=== PATIENT | male | born 1940 | race Caucasian/White ===

== ENCOUNTER 2021-05-07 18:38 | Inpatient (IN) ==
[2021-05-07] MEDS ORDERED: Ondansetron 4 MG/2 ML VIAL IVP PRN (23:23)
[2021-05-07] MEDS ORDERED: Naloxone 0.4 MG/ML INJ IVP PRN (23:23)
[2021-05-07] MEDS ORDERED: Acetaminophen 325 MG TABLET PO PRN (23:23)
[2021-05-07] MEDS ORDERED: D5% in Water 1,000 ML IVC PRN (23:49)
[2021-05-07] MEDS ORDERED: Dextrose Gel 15 GM/37.5 ML TUBE PO PRN ×2 (23:49)
[2021-05-07] MEDS ORDERED: *HR* Dextrose 50 % in Water (Syg) 50 ML SYRINGE IVP PRN (23:49)
[2021-05-08 01:21] LABS: Alanine Aminotransferase 54 Units/L (7-52); Albumin 3.4 g/dL (3.5-5.7); Alkaline Phosphatase 52 Units/L (34-104); Aspartate Amino Transferase 76 Units/L (13-39); BUN/Creatinine Ratio 27 (6-26); Bilirubin,Direct 0.2 mg/dL (0.0-0.2); Bilirubin,Indirect 0.3 mg/dL (0.0-1.0); Bilirubin,Total 0.5 mg/dL (0.3-1.0); Blood Urea Nitrogen 37 mg/dL (8-23); C-Reactive Protein 152 mg/L (Less than 10); Calcium 9.3 mg/dL (8.6-10.3); Carbon Dioxide 26 mEq/L (23-29); Chloride 101 mEq/L (98-107); Chol/HDL Ratio 3.2 (0-4.9); Cholesterol 86 mg/dL (< 200); Globulin 3.5 g/dL (2.4-3.5); Glucose 98 mg/dL (70-105); HDL Cholesterol 27 mg/dL (40-59); LDL Cholesterol,Calculated 45 mg/dL (< 100); Lactate Dehydrogenase 322 Units/L (140-271); Magnesium 1.8 mg/dL (1.6-2.6); Osmolality,Calculated 289 (280-300); Phosphorous 2.6 mg/dL (2.7-4.5); Potassium 3.7 mEq/L (3.5-5.1); Sodium 135 mEq/L (136-145); Total Protein 6.9 g/dL (6.4-8.9); Triglycerides 72 mg/dL (< 150); eGFR For African Americans > 60 (> 60); eGFR For Non-African Americans 50 (> 60)
[2021-05-08 01:30] LABS: Basophils % 0.3 %; Eosinophils % 0.3 %; Hematocrit 36.1 % (37.5-50.1); Hemoglobin 12.1 g/dL (12.9-16.9); Immature Granulocytes % 0.7 % (0-4); Lymphocytes # 0.5 K/mcL (0.6-4.6); Lymphocytes % 4.1 %; Mean Corpuscular HGB Conc 33.5 g/dL (31.6-35.5); Mean Corpuscular Hemoglobin 30.4 pg (28.0-33.3); Mean Corpuscular Volume 90.7 fL (83.0-100.0); Mean Platelet Volume 11.8 fL (9.4-12.4); Monocytes % 8.6 %; Neutrophils # 9.8 K/mcL (1.6-8.9); Platelet Count 326 K/mcL (140-400); Red Blood Count 3.98 M/mcL (4.19-5.50); White Blood Count 11.3 K/mcL (4.3-11.1)
[2021-05-08 01:38] LABS: Ferritin 1229 ng/mL (20-250)
[2021-05-08 01:39] LABS: Estimated Average Glucose 169 mg/dl; Hemoglobin A1C 7.5 %
[2021-05-08 02:02] LABS: INR 1.6; Prothrombin Time 18.2 Seconds (9.4-12.1)
[2021-05-08] MEDS ORDERED: *HR* Heparin 5,000 UNIT/ML VIAL IVP PRN ×2 (02:02)
[2021-05-08] MEDS: Heparin 25,000UNIT/250ML 1/2NS 25,000 UNIT/250 ML IV.SOLN IVC SCH (02:23)
[2021-05-08 02:55] LABS: Bilirubin,Urine Negative (Negative); Blood,Urine Trace (Negative); Clarity,Urine Clear (Clear); Color,Urine Yellow (Yellow); Glucose,Urine (UA) Normal (Normal); Ketones,Urine Negative (Negative); Leukocyte Esterase,Urine Negative (Negative); Mucus,Urine Few per lpf (None-Few); Nitrite,Urine Negative (Negative); PH,Urine 5.5 pH Units (5.0-8.0); Protein,Urine 50 mg/dL (Neg-Trace); RBC,Urine 0-3 per hpf (0-3); Specific Gravity,Urine 1.026 (1.010-1.025); Squamous Epithelial Cell,Urine Few per hpf (None-Few); WBC,Urine 0-3 per hpf (0-3)
[2021-05-08] MEDS: Insulin LISPRO 300 UNITS/3 ML VIAL SUBQ SCH ×4 (08:13→20:10)
[2021-05-08] MEDS: cefTRIAXone 1,000 MG in 0.9 % Sodium Chloride Mini Bag 100 ML IVPB SCH (08:35)
[2021-05-08] MEDS: Azithromycin 500 MG in 0.9 % Sodium Chloride 250 ML IVPB SCH (08:35)
[2021-05-08] MEDS: Ipratropium 1 PUFF INHALER IH SCH ×3 (16:11→23:48)
[2021-05-08] MEDS: Metoprolol XL (24 HR) Succ 25 MG TAB.ER.24H PO SCH (17:47)
[2021-05-09] MEDS: Heparin 25,000UNIT/250ML 1/2NS 25,000 UNIT/250 ML IV.SOLN IVC SCH ×2 (01:05→19:18)
[2021-05-09] MEDS: Ipratropium 1 PUFF INHALER IH SCH ×6 (04:09→23:52)
[2021-05-09 04:16] LABS: Basophils % 0.4 %; Eosinophils # 0.2 K/mcL (0.0-0.6); Eosinophils % 2.1 %; Hematocrit 35.5 % (37.5-50.1); Hemoglobin 11.8 g/dL (12.9-16.9); Immature Granulocytes % 0.9 % (0-4); Lymphocytes # 0.8 K/mcL (0.6-4.6); Lymphocytes % 11.1 %; Mean Corpuscular HGB Conc 33.2 g/dL (31.6-35.5); Mean Corpuscular Hemoglobin 30.3 pg (28.0-33.3); Mean Platelet Volume 11.5 fL (9.4-12.4); Monocytes # 0.7 K/mcL (0.0-1.3); Monocytes % 9.4 %; Neutrophils # 5.7 K/mcL (1.6-8.9); Platelet Count 296 K/mcL (140-400); Segmented Neutrophils % 76.1 %; White Blood Count 7.5 K/mcL (4.3-11.1)
[2021-05-09 04:36] LABS: BUN/Creatinine Ratio 29 (6-26); Blood Urea Nitrogen 31 mg/dL (8-23); Calcium 9.4 mg/dL (8.6-10.3); Carbon Dioxide 25 mEq/L (23-29); Chloride 105 mEq/L (98-107); Glucose 120 mg/dL (70-105); Osmolality,Calculated 298 (280-300); Sodium 140 mEq/L (136-145); eGFR For African Americans > 60 (> 60); eGFR For Non-African Americans > 60 (> 60)
[2021-05-09] MEDS: Insulin LISPRO 300 UNITS/3 ML VIAL SUBQ SCH ×4 (08:30→20:05)
[2021-05-09] MEDS: Aspirin Enteric Coated 81 MG Tablet PO SCH (08:46)
[2021-05-09] MEDS: Loratadine 10 MG TABLET PO SCH (08:46)
[2021-05-09] MEDS: Metoprolol XL (24 HR) Succ 25 MG TAB.ER.24H PO SCH (08:46)
[2021-05-09] MEDS: cefTRIAXone 1,000 MG in 0.9 % Sodium Chloride Mini Bag 100 ML IVPB SCH (09:14)
[2021-05-09] MEDS: Fluticasone Propionate Nasal 50 MCG/SPRAY BOTTLE NS SCH (09:21)
[2021-05-09] MEDS: Azithromycin 500 MG in 0.9 % Sodium Chloride 250 ML IVPB SCH (10:14)
[2021-05-10] MEDS: Heparin 25,000UNIT/250ML 1/2NS 25,000 UNIT/250 ML IV.SOLN IVC SCH (00:20)
[2021-05-10 03:43] LABS: Basophils % 0.3 %; Eosinophils # 0.2 K/mcL (0.0-0.6); Eosinophils % 2.5 %; Hematocrit 34.1 % (37.5-50.1); Hemoglobin 11.1 g/dL (12.9-16.9); Immature Granulocytes % 1.2 % (0-4); Lymphocytes # 0.8 K/mcL (0.6-4.6); Lymphocytes % 8.2 %; Mean Corpuscular HGB Conc 32.6 g/dL (31.6-35.5); Mean Corpuscular Volume 92.2 fL (83.0-100.0); Mean Platelet Volume 10.4 fL (9.4-12.4); Monocytes # 0.7 K/mcL (0.0-1.3); Monocytes % 6.8 %; Neutrophils # 7.9 K/mcL (1.6-8.9); Platelet Count 346 K/mcL (140-400); Red Cell Distribution Width 13.1 % (11.5-14.5); White Blood Count 9.8 K/mcL (4.3-11.1)
[2021-05-10 04:02] LABS: Alanine Aminotransferase 34 Units/L (7-52); Albumin 3.1 g/dL (3.5-5.7); Albumin/Globulin Ratio 0.9 (1.1-2.2); Alkaline Phosphatase 51 Units/L (34-104); Aspartate Amino Transferase 37 Units/L (13-39); BUN/Creatinine Ratio 24 (6-26); Bilirubin,Total 0.5 mg/dL (0.3-1.0); Blood Urea Nitrogen 26 mg/dL (8-23); C-Reactive Protein 110 mg/L (Less than 10); Calcium 9.2 mg/dL (8.6-10.3); Carbon Dioxide 25 mEq/L (23-29); Chloride 103 mEq/L (98-107); Globulin 3.4 g/dL (2.4-3.5); Glucose 142 mg/dL (70-105); Lactate Dehydrogenase 276 Units/L (140-271); Magnesium 1.8 mg/dL (1.6-2.6); Osmolality,Calculated 295 (280-300); Potassium 3.9 mEq/L (3.5-5.1); Sodium 139 mEq/L (136-145); Total Protein 6.5 g/dL (6.4-8.9); eGFR For African Americans > 60 (> 60); eGFR For Non-African Americans > 60 (> 60)
[2021-05-10 04:19] LABS: Ferritin 1143 ng/mL (20-250)
[2021-05-10] MEDS: Ipratropium 1 PUFF INHALER IH SCH ×5 (04:38→20:27)
[2021-05-10] MEDS: Insulin LISPRO 300 UNITS/3 ML VIAL SUBQ SCH ×4 (08:51→21:39)
[2021-05-10] MEDS: Aspirin Enteric Coated 81 MG Tablet PO SCH (09:01)
[2021-05-10] MEDS: cefTRIAXone 1,000 MG in 0.9 % Sodium Chloride Mini Bag 100 ML IVPB SCH (09:01)
[2021-05-10] MEDS: Loratadine 10 MG TABLET PO SCH (09:01)
[2021-05-10] MEDS: Metoprolol XL (24 HR) Succ 25 MG TAB.ER.24H PO SCH (09:02)
[2021-05-10] MEDS: Fluticasone Propionate Nasal 50 MCG/SPRAY BOTTLE NS SCH (09:02)
[2021-05-10] MEDS: Azithromycin 500 MG in 0.9 % Sodium Chloride 250 ML IVPB SCH (10:34)
[2021-05-11] MEDS: Ipratropium 1 PUFF INHALER IH SCH ×4 (00:07→11:18)
[2021-05-11 06:07] LABS: Basophils % 0.4 %; Eosinophils # 0.2 K/mcL (0.0-0.6); Eosinophils % 1.9 %; Hematocrit 33.5 % (37.5-50.1); Immature Granulocytes % 1.7 % (0-4); Lymphocytes % 9.5 %; Mean Corpuscular HGB Conc 32.8 g/dL (31.6-35.5); Mean Corpuscular Hemoglobin 30.1 pg (28.0-33.3); Mean Corpuscular Volume 91.8 fL (83.0-100.0); Mean Platelet Volume 10.6 fL (9.4-12.4); Monocytes # 0.7 K/mcL (0.0-1.3); Monocytes % 6.8 %; Platelet Count 364 K/mcL (140-400); Red Blood Count 3.65 M/mcL (4.19-5.50); Red Cell Distribution Width 12.9 % (11.5-14.5); Segmented Neutrophils % 79.7 %; White Blood Count 10.1 K/mcL (4.3-11.1)
[2021-05-11 06:28] LABS: Alanine Aminotransferase 33 Units/L (7-52); Albumin 3.3 g/dL (3.5-5.7); Alkaline Phosphatase 56 Units/L (34-104); Aspartate Amino Transferase 32 Units/L (13-39); BUN/Creatinine Ratio 27 (6-26); Bilirubin,Total 0.4 mg/dL (0.3-1.0); Blood Urea Nitrogen 27 mg/dL (8-23); Calcium 9.8 mg/dL (8.6-10.3); Carbon Dioxide 26 mEq/L (23-29); Chloride 108 mEq/L (98-107); Globulin 3.3 g/dL (2.4-3.5); Glucose 152 mg/dL (70-105); Osmolality,Calculated 300 (280-300); Potassium 3.9 mEq/L (3.5-5.1); Sodium 141 mEq/L (136-145); Total Protein 6.6 g/dL (6.4-8.9); eGFR For African Americans > 60 (> 60); eGFR For Non-African Americans > 60 (> 60)
[2021-05-11] MEDS: Insulin LISPRO 300 UNITS/3 ML VIAL SUBQ SCH (08:01)
[2021-05-11] MEDS: Metoprolol XL (24 HR) Succ 25 MG TAB.ER.24H PO SCH (08:42)
[2021-05-11] MEDS: Loratadine 10 MG TABLET PO SCH (08:42)
[2021-05-11] MEDS: Aspirin Enteric Coated 81 MG Tablet PO SCH (08:42)
[2021-05-11] MEDS: Fluticasone Propionate Nasal 50 MCG/SPRAY BOTTLE NS SCH (08:43)
[2021-05-11] MEDS ORDERED: levoFLOXacin 750 MG TABLET PO SCH (09:00)
[2021-05-11] MEDS ORDERED: Azithromycin 250 MG TABLET PO SCH (09:00)
[2021-05-11 11:04] VITALS: BP 103/74; PULSE 111; TEMP 97.3
[2021-05-11 11:19] VITALS: O2SAT 96
== END 2021-05-11 12:09 | disposition home or self-care (01) | DRG 177 ==
LOC: 3ANU → SUATTDRO 23:46
PROVIDERS: ADMIT Student in an Organized Health Care Education/Training Program; ATTEND Internal Medicine